=== PATIENT | male | born 1960 | race Caucasian/White ===

== ENCOUNTER 2021-01-03 16:58 | Emergency (ER) | payer OTHER ==
[~2021-01-03 16:58] MED LIST: BIAXIN 250MG T250 MG PO; CHANTIX1 EACH PO; CITALOPRAM10 MG/5 ML PO; COREG 3.125M3.125 MG PO; DIFLUCAN150 MG PO; ECOTRIN81 MG PO; HYDROCHLOROTHIA25 MG PO; IMDUR ER TAB 3030 MG PO; KEFLEX CAP 500500 MG PO; LIDOCAINE-PRILO30 GM TP; LIPITOR TAB 2020 MG PO; MOBIC15 MG PO; NEURONTIN800 MG PO; NORCO 5-325 TA1 EACH PO; NORVASC 5 MG TAB5 MG PO; PAMELOR25 MG PO; PRINIVIL20 MG PO; PROTONIX40 MG PO; PROZAC20 MG PO; RISPERDAL1 MG PO; SUBOXONE 8 MG-1 EACH SL; ZESTRIL40 MG PO
[2021-01-03] MEDS ORDERED: CELEBREX100 MG PO (19:13)
== END 2021-01-03 19:16 | disposition home or self-care (01) ==
LOC: ER1 16:58
DX: S82.852A Displaced trimalleolar fracture of left lower leg, initial encounter for closed fracture (principal); J44.9 Chronic obstructive pulmonary disease, unspecified; W00.2XXA Other fall from one level to another due to ice and snow, initial encounter; Y93.01 Activity, walking, marching and hiking; Y92.009 Unspecified place in unspecified non-institutional (private) residence as the place of occurrence of the external cause
CPT/HCPCS: 29515; 73610; 96372; 99283; J1885

== ENCOUNTER → 2021-01-20 | Outpatient (CLI) | payer OTHER ==
[~2021-01-20] MED LIST changes: +CELEBREX100 MG PO; +CELEXA 20MG TAB20 MG PO; +INVANZ 1 GM VIAL1 GM IM; +INVANZ 1 GM VIAL1 GM IV; +IPRAT-ALBUT 0.5-3 ML NEB; +KEPPRA500 MG PO; +KLOR-CON M2020 MEQ PO; +NICOTINE PATCH1 EAC1 TOP
== END ==
LOC: KOH-I 10:00
DX: S82.852A Displaced trimalleolar fracture of left lower leg, initial encounter for closed fracture (principal); S93.02XA Subluxation of left ankle joint, initial encounter; W19.XXXA Unspecified fall, initial encounter
CPT/HCPCS: 73700

== ENCOUNTER 2021-02-04 16:32 | Inpatient (IN) | payer OTHER ==
[~2021-02-04] VITALS: Ht 182.9 cm; Wt 65.8 kg
[~2021-02-04 16:32] MED LIST changes: -CELEXA 20MG TAB20 MG PO; -INVANZ 1 GM VIAL1 GM IM; -INVANZ 1 GM VIAL1 GM IV; -IPRAT-ALBUT 0.5-3 ML NEB; -KEPPRA500 MG PO; -KLOR-CON M2020 MEQ PO; -NICOTINE PATCH1 EAC1 TOP
[2021-02-04 19:43] LABS: RED BLOOD COUNT 4.79 M/UL (4.20-5.50); WHITE BLOOD COUNT 10.4 K/UL (4.5-11.0)
[2021-02-04 20:04] LABS: BUN/CREATININE RATIO 9 (0-10)
[2021-02-04] MEDS ORDERED: CELEXA 20MG TAB20 MG PO (21:01)
[2021-02-07 13:37] LABS: HEMOGLOBIN 12.2 gm/dl (14.0-17.5)
[2021-02-07 13:39] LABS: RED BLOOD COUNT 4.01 M/UL (4.20-5.50); WHITE BLOOD COUNT 13.2 K/UL (4.5-11.0)
[2021-02-07 14:09] LABS: BUN/CREATININE RATIO 12 (0-10)
[2021-02-08 02:58] LABS: HEMOGLOBIN 11.7 gm/dl (14.0-17.5); RED BLOOD COUNT 3.82 M/UL (4.20-5.50)
[2021-02-08 02:59] LABS: WHITE BLOOD COUNT 9.1 K/UL (4.5-11.0)
[2021-02-08 03:24] LABS: BUN/CREATININE RATIO 14 (0-10)
[2021-02-08 15:17] LABS: HEMOGLOBIN 12.5 gm/dl (14.0-17.5); RED BLOOD COUNT 4.13 M/UL (4.20-5.50); WHITE BLOOD COUNT 8.8 K/UL (4.5-11.0)
[2021-02-08 15:40] LABS: BUN/CREATININE RATIO 16 (0-10)
[2021-02-08] MEDS ORDERED: IPRAT-ALBUT 0.5-3 ML NEB (16:51)
[2021-02-08] MEDS ORDERED: NICOTINE PATCH1 EAC1 TOP (16:55)
[2021-02-08] MEDS ORDERED: KLOR-CON M2020 MEQ PO (16:55)
[2021-02-08] MEDS ORDERED: INVANZ 1 GM VIAL1 GM IV (16:58)
[2021-02-09 05:42] LABS: HEMOGLOBIN 12.7 gm/dl (14.0-17.5); RED BLOOD COUNT 4.13 M/UL (4.20-5.50); WHITE BLOOD COUNT 7.9 K/UL (4.5-11.0)
[2021-02-09 06:02] LABS: BUN/CREATININE RATIO 16 (0-10)
[2021-02-09] MEDS ORDERED: INVANZ 1 GM VIAL1 GM IM (13:56)
--- NOTE | 2021-02-09 16:50 | NUR ---
[address] bobo regarding pain med prescription, no answer. pt stated that his ride was here and that he had to leave that he couldnt wait, pt stated that he would go to dr blum office in the morning to obtain pain med rx.,
== END 2021-02-09 17:03 | disposition home or self-care (01) | DRG 493 ==
LOC: ER1 16:32 → M/S 19:06 → CDU 19:06 → M/S 22:52
PROVIDERS: Physician Assistant; Podiatrist Foot & Ankle Surgery; Preventive Medicine Occupational Medicine; ADMIT Internal Medicine
PROC: 0QSK04Z Reposition Left Fibula with Internal Fixation Device, Open Approach (ICD-10-PCS; 2021-02-06)
PROC: 0QUK0KZ Supplement Left Fibula with Nonautologous Tissue Substitute, Open Approach (ICD-10-PCS; 2021-02-06)
PROC: 0QUH0KZ Supplement Left Tibia with Nonautologous Tissue Substitute, Open Approach (ICD-10-PCS; 2021-02-06)
PROC: 0QSH04Z Reposition Left Tibia with Internal Fixation Device, Open Approach (ICD-10-PCS; principal; 2021-02-06 10:45)
DX: S82.852A Displaced trimalleolar fracture of left lower leg, initial encounter for closed fracture (principal); J44.1 Chronic obstructive pulmonary disease with (acute) exacerbation; F17.210 Nicotine dependence, cigarettes, uncomplicated; K21.9 Gastro-esophageal reflux disease without esophagitis; I10 Essential (primary) hypertension; F19.11 Other psychoactive substance abuse, in remission; F32.9 Major depressive disorder, single episode, unspecified; F41.9 Anxiety disorder, unspecified; E87.6 Hypokalemia; I27.20 Pulmonary hypertension, unspecified; Z87.11 Personal history of peptic ulcer disease
CPT/HCPCS: 36415; 71045; 73610; 76000; 80048; 80307; 81001; 83735; 83880; 84439; 84443; 85018; 85025; 85027; 85610; 85730; 87040; 93005; 94640; 94664; 94760; 96365; 96366; 96368; 96375; 99284; C1713; C1769; J0592; J0690; J1100; J1335; J1650; J1885; J2001; J2250; J2270; J2405; J2543; J2704; J2710; J2795; J2930; J3010; J3370; J7030; J7120; U0002

== ENCOUNTER → 2021-02-23 | Outpatient (CLI) | payer OTHER ==
[~2021-02-23] MED LIST changes: +CELEXA 20MG TAB20 MG PO; +INVANZ 1 GM VIAL1 GM IM; +INVANZ 1 GM VIAL1 GM IV; +IPRAT-ALBUT 0.5-3 ML NEB; +KEPPRA500 MG PO; +KLOR-CON M2020 MEQ PO; +NICOTINE PATCH1 EAC1 TOP
== END ==
LOC: KOH-I 13:43
DX: Z47.89 Encounter for other orthopedic aftercare (principal); S82.892A Other fracture of left lower leg, initial encounter for closed fracture; Z98.1 Arthrodesis status
CPT/HCPCS: 73610; 73630

== ENCOUNTER → 2021-03-22 | Outpatient (CLI) | payer OTHER | LOC: KOH-I 15:55 | DX: S82.832D Other fracture of upper and lower end of left fibula, subsequent encounter for closed fracture with routine healing (principal); S82.52XD Displaced fracture of medial malleolus of left tibia, subsequent encounter for closed fracture with routine healing | CPT/HCPCS: 73610 ==

== ENCOUNTER 2021-03-25 04:55 | Emergency (ER) | payer OTHER ==
[~2021-03-25 04:55] MED LIST changes: -KEPPRA500 MG PO
[2021-03-25 06:03] LABS: HEMOGLOBIN 14.4 gm/dl (14.0-17.5); RED BLOOD COUNT 4.66 M/UL (4.20-5.50); WHITE BLOOD COUNT 9.5 K/UL (4.5-11.0)
[2021-03-25 06:26] LABS: BUN/CREATININE RATIO 14 (0-10)
[2021-03-25] MEDS ORDERED: KEPPRA500 MG PO (10:21)
== END 2021-03-25 12:00 | disposition home or self-care (01) ==
LOC: ER1 04:55
PROVIDERS: Family Medicine
DX: R56.9 Unspecified convulsions (principal); N13.2 Hydronephrosis with renal and ureteral calculous obstruction; J44.9 Chronic obstructive pulmonary disease, unspecified; I10 Essential (primary) hypertension; F17.200 Nicotine dependence, unspecified, uncomplicated
CPT/HCPCS: 36600; 70450; 71045; 80053; 80307; 81001; 82550; 82553; 82803; 83874; 84484; 85025; 87086; 93005; 96374; 96375; 99285; J1953; J2405

== ENCOUNTER → 2021-04-15 | Outpatient (CLI) | payer OTHER ==
[~2021-04-15] MED LIST changes: +KEPPRA500 MG PO
== END ==
LOC: KOH-I 15:16
DX: S82.832D Other fracture of upper and lower end of left fibula, subsequent encounter for closed fracture with routine healing (principal)
CPT/HCPCS: 73610

== ENCOUNTER → 2021-05-11 | Outpatient (CLI) | payer OTHER | LOC: KOH-I 13:31 | DX: S82.202D Unspecified fracture of shaft of left tibia, subsequent encounter for closed fracture with routine healing (principal); S82.402D Unspecified fracture of shaft of left fibula, subsequent encounter for closed fracture with routine healing | CPT/HCPCS: 73610 ==

== ENCOUNTER → 2021-06-11 | Outpatient (CLI) | payer OTHER | LOC: KOH-I 05-28 13:00 | DX: S82.302K Unspecified fracture of lower end of left tibia, subsequent encounter for closed fracture with nonunion (principal); S82.832K Other fracture of upper and lower end of left fibula, subsequent encounter for closed fracture with nonunion; M89.9 Disorder of bone, unspecified | CPT/HCPCS: 73700 ==

== ENCOUNTER 2021-09-30 10:37 | Emergency (ER) | payer OTHER ==
[2021-09-30 12:11] LABS: HEMOGLOBIN 15.3 gm/dl (14.0-17.5); RED BLOOD COUNT 4.84 M/UL (4.20-5.50); WHITE BLOOD COUNT 6.1 K/UL (4.5-11.0)
[2021-09-30 12:45] LABS: BUN/CREATININE RATIO 11 (0-10)
[2021-09-30] MEDS ORDERED: Voltaren Gel 1 % TOP (13:15)
[2021-09-30] MEDS ORDERED: NORFLEX 100 MG100 MG PO (13:15)
[2021-09-30] MEDS ORDERED: MEDROL DOSEPAK 24 MG PO (13:15)
== END 2021-09-30 13:22 | disposition home or self-care (01) ==
LOC: ER1 10:37
PROVIDERS: Physician Assistant Medical
DX: M54.9 Dorsalgia, unspecified (principal); G89.29 Other chronic pain; F17.210 Nicotine dependence, cigarettes, uncomplicated; I25.2 Old myocardial infarction; J44.9 Chronic obstructive pulmonary disease, unspecified
CPT/HCPCS: 72131; 80053; 81001; 85025; 85652; 86140; 96374; 96375; 99284; J2270; J2405